=== PATIENT | male | born 1975 | race Caucasian/White ===

== ENCOUNTER 2018-09-30 13:15 | Emergency (ER) | payer SELFPAY ==
[~2018-09-30] VITALS: Ht 177.8 cm; Wt 79.4 kg
--- NOTE | 2018-09-30 14:08 | NUR ---
Patient discharged to home in stable conditon. Written and verbal after care instructions given. Patient verbalizes understanding of instructions.
[2018-09-30 14:09] VITALS: BP 126/88
== END 2018-09-30 14:10 | disposition home or self-care (01) ==
LOC: ER 13:15
DX: R05 Cough (principal); F17.210 Nicotine dependence, cigarettes, uncomplicated
CPT/HCPCS: 71045; A4663

== ENCOUNTER 2019-01-23 15:42 | Emergency (ER) | payer SELFPAY ==
--- NOTE | 2019-01-23 16:15 | NUR ---
PT LEFT W/O BEING TRIAGED.
== END 2019-01-23 16:16 | disposition left against medical advice (07) ==
LOC: ER 15:44
DX: Z53.21 Procedure and treatment not carried out due to patient leaving prior to being seen by health care provider (principal)

== ENCOUNTER 2021-05-27 00:57 | Inpatient (IN) | payer OTHER ==
[~2021-05-27] VITALS: Ht 177.8 cm; Wt 77.1 kg
--- NOTE | 2021-05-27 01:25 | NUR ---
Pt arrived at ER c/o abdominal pain and diarrhea X 4 days after eating [employer]. Afebrile. Denies SOB or chest pain. Dr. Khan at bedside MSE in progress.
[2021-05-27] MEDS ORDERED: IV NORMAL SALINE 1000 ML BAG IV ONE (01:30)
[2021-05-27] MEDS ORDERED: MORPHINE SULFATE 4 MG/1 ML DISP.SYRIN IV ONE (01:45)
[2021-05-27] MEDS ORDERED: ONDANSETRON 4 MG/2 ML VIAL IV ONE (01:45)
[2021-05-27 01:56] LABS: HEMATOCRIT 49.6 % (36.7-47.1); MEAN CORPUSCULAR HEMOGLOBIN 26.7 uug (23.8-33.4); MEAN CORPUSCULAR VOLUME 78.8 fL (73.0-96.2); PLATELET COUNT (AUTO) 427 K/uL (152-348)
[2021-05-27] MEDS ORDERED: IV NS 1000 ML 1,000 ML IV ONE (02:00)
[2021-05-27 02:01] LABS: BILIRUBIN,DIRECT 0.1 mg/dL (0.0-0.2); BILIRUBIN,TOTAL 0.5 mg/dL (0.2-1.0); CREATININE 1.4 mg/dL (0.6-1.3); POTASSIUM 3.2 mmol/L (3.5-5.1); TOTAL PROTEIN, SERUM 8.7 g/dL (6.4-8.2)
[2021-05-27] MEDS ORDERED: ONDANSETRON 4 MG/2 ML VIAL ONE (02:22)
[2021-05-27] MEDS ORDERED: MORPHINE SULFATE 4 MG/1 ML DISP.SYRIN ONE (02:22)
[2021-05-27] MEDS ORDERED: SWABABLE VALVE TRANSFER SET EA MC ONE (02:44)
[2021-05-27] MEDS ORDERED: IV NORMAL SALINE 250 ML IV ONE (02:44)
[2021-05-27] MEDS ORDERED: IOHEXOL 300MG/ML 100 ML INFUS..BTL ONE (02:44)
--- NOTE | 2021-05-27 03:00 | NUR ---
PT RESTING IN BED EYES CLOSED. BREATHING EVEN AND UNLABORED.
[2021-05-27] MEDS: MAGNESIUM SULFATE/D5W 100 ML IV SCH (03:12)
[2021-05-27] MEDS ORDERED: POTASSIUM CHLORIDE 20 MEQ TAB.PRT.SR ONE (03:14)
[2021-05-27] MEDS ORDERED: MAGNESIUM SULFATE/D5W 200 ML ONE (03:14)
[2021-05-27] MEDS ORDERED: POTASSIUM CHLORIDE 20 MEQ TAB.PRT.SR PO ONE (03:15)
--- NOTE | 2021-05-27 03:36 | NUR ---
CALLED [facility] FOR PANEL CALL, COLLEEN SEVILLA PAGED.
--- NOTE | 2021-05-27 04:00 | NUR ---
PT AMBULATED TO RESTROOM, STEADY GAIT. ABLE TO PROVIDE US WITH URINE SAMPLE.
[2021-05-27 04:22] LABS: *BILIRUBIN,URIN NEGATIVE (NEGATIVE); *CLARITY,URINE CLEAR (CLEAR); *COLOR,URINE YELLOW (YELLOW); *KETONES,URINE 1+ (NEGATIVE); *UROBILINOGEN,URINE 0.2 E.U./dl (NORMAL); LEUKOCYTE ESTERASE ,URINE NEGATIVE (NEGATIVE); NITRITE, URINE NEGATIVE (NEGATIVE); UGLUCOSE NEGATIVE (NEGATIVE)
[2021-05-27 04:33] LABS: *BLOOD, URINE TRACE (NEGATIVE)
[2021-05-27 04:42] LABS: BACTERIA,URINE NONE SEEN /HPF (NONE SEEN); RBC,URINE 0-3 /HPF (0-3); SQUAMOUS EPITHELIAL CELL,UR FEW /HPF (NONE SEEN); WBC,URINE 0-3 /HPF (0-3)
[2021-05-27] MEDS ORDERED: FENTANYL CITRATE 100 MCG/2 ML AMPUL IV ONE (05:15)
[2021-05-27] MEDS ORDERED: FENTANYL CITRATE 100 MCG/2 ML AMPUL ONE (05:16)
--- NOTE | 2021-05-27 06:46 | NUR ---
PT ASLEEP, RESTING COMFORTABLY, VITALS STABLE.
--- NOTE | 2021-05-27 07:51 | NUR ---
Report given to Lauryn, CLERICAL COORDINATOR. Pt going to Rm 321. Pt stable, VSS, ready for transport.
--- NOTE | 2021-05-27 08:00 | NUR ---
Pt self ambulated from wheelchair to bed. Hand-off given, pt continues to be in stable condition and in NAD at this time.
--- NOTE | 2021-05-27 08:00 | NUR ---
Gps/Design Inserter- Received report from Rolan Batista. Admitted from ER via [facility]ney. Alert, oriented x 4, Complaining of being bloated, abdominal discomfort. Feeling comfortable when he is lying flat in bed. Saline lock to left arm intact, patent. Adam MARIE in too see patient. Patient denies any nausea, no vomiting noted, kept NPO for now as ordered from Adam MARIE, can swab mouth. Safety reviewed, routine admission done.
[2021-05-27 08:15] VITALS: BP 138/81
[2021-05-27] MEDS ORDERED: ONDANSETRON 4 MG/2 ML VIAL IV PRN (10:00)
[2021-05-27] MEDS ORDERED: IV NORMAL SALINE 500 ML IV ONE (10:00)
[2021-05-27] MEDS ORDERED: MORPHINE SULFATE 2 MG/1 ML DISP.SYRIN IV PRN (10:00)
[2021-05-27] MEDS ORDERED: ACETAMINOPHEN 650 MG SUPP.RECT RC PRN (10:00)
[2021-05-27] MEDS ORDERED: ALBUTEROL SULFATE 2.5 MG/3 ML NEBU NEB PRN (11:30)
[2021-05-27] MEDS ORDERED: MORPHINE SULFATE 4 MG/1 ML DISP.SYRIN IV PRN (13:00)
[2021-05-27] MEDS: CEFTRIAXONE 1 G in IV DEXTROSE 5% 50 ML IV SCH (13:12)
[2021-05-27] MEDS: METRONIDAZOLE 500 MG/NS 100ML 500 MG in PREMIXED 1 EACH IV SCH ×2 (15:04→22:35)
--- NOTE | 2021-05-27 15:47 | NUR ---
Complained of dryness in his oral mucousa, , ok. for oral swabs dips in ice chips for comfort, per Adam Oliva PRODUCT PLANNER. Kept NPO , oral care encouraged.
[2021-05-27 15:59] VITALS: BP 118/70
--- NOTE | 2021-05-27 20:00 | NUR ---
RECEIVED PATIENT AWAKE IN BED. A/O X4. VS WNL. DENIES ANY PAIN OR DISCOMFORT AT THIS TIME. NO RESP. DISTRESS NOTED. ON RA. HEPLOCK INTACT NAD PATENT, NOTED TO LEFT FA #[address] MANN AND DORA KAUFMAN, SAW PATIENT AT BEDSIDE TO DISCUSS CARE. DORA KAUFMAN NP ORDERED NGT TO BE INSERTED, BUT PATIENT REFUSED FOR INSERTION. CALLED OUT TO DR. MANN AND DORA KAUFMAN INSPECTOR AIR CARRIER TO INFORM OF PATIENTS REFUSAL. NO NEW ORDERS AT THIS TIME. CALL LIGHT IN REACH. ALL NEEDS ATTENDED. WILL CONTINUE TO MONITOR AND ASSESS.
[2021-05-27 20:43] VITALS: BP 132/76
[2021-05-27] MEDS: IV D5/ 0.9% NACL 1,000 ML IV PRN (21:00)
[2021-05-28] MEDS: IV D5/ 0.9% NACL 1,000 ML IV PRN ×2 (05:27→17:29)
[2021-05-28] MEDS: METRONIDAZOLE 500 MG/NS 100ML 500 MG in PREMIXED 1 EACH IV SCH ×3 (05:42→21:10)
[2021-05-28 07:09] LABS: CREATININE 0.9 mg/dL (0.6-1.3); MAGNESIUM 2.5 mg/dL (1.8-2.4)
[2021-05-28 07:11] LABS: HEMATOCRIT 39.6 % (36.7-47.1); MEAN CORPUSCULAR VOLUME 78.9 fL (73.0-96.2); PLATELET COUNT (AUTO) 327 K/uL (152-348)
--- NOTE | 2021-05-28 08:00 | NUR ---
asleep on rounds but arousable, denies of abdominal pain, no nausea and vomiting,states had BM this morning, kept npo, states he's hungry, instructed on plan of care- verbalized understanding, safety measures maintained
[2021-05-28 08:11] LABS: POTASSIUM 2.7 mmol/L (3.5-5.1)
--- NOTE | 2021-05-28 08:20 | NUR ---
K+-2.7- D Pj MYRICK informed with orders
[2021-05-28] MEDS: PANTOPRAZOLE SODIUM 40 MG VIAL IV SCH (08:24)
[2021-05-28] MEDS: POTASSIUM CHLORIDE 50 ML IV SCH ×8 (09:12→17:28)
[2021-05-28] MEDS ORDERED: DIATR MEGLU/DIATRIZOATE SODIUM 30 ML BOTTLE PO ONE (10:03)
--- NOTE | 2021-05-28 10:30 | NUR ---
SB follow thru done, still npo, states is passing gas
[2021-05-28] MEDS: CEFTRIAXONE 1 G in IV DEXTROSE 5% 50 ML IV SCH (11:50)
[2021-05-28 11:53] VITALS: BP 129/70
[2021-05-28 15:14] VITALS: BP 122/70
--- NOTE | 2021-05-28 18:12 | NUR ---
xray here -taking last picture for s SB follow thru, pt kept NPO, no distress noted, call light within reach, all needs attended and met
--- NOTE | 2021-05-28 20:00 | NUR ---
PATIENT AWAKE IN BED. A/O X4. DENIES ANY PAIN OR DISCOMFORT. NO RESP. DISTRESS NOTED. VS WNL. IVF INFUSING WELL TO LEFT FA #20 GAUGE. CONTINUED NPO ORDERED. ALL NEEDS ATTENDED. WILL CONTINUE TO MONITOR AND ASSESS.
[2021-05-28 20:06] VITALS: BP 119/65
--- NOTE | 2021-05-28 21:45 | NUR ---
NOTIFIED DR. MANN OF SMALL BOWEL SERIES RESULTS. NO NEW ORDERS GIVEN AT THIS TIME. ALL NEEDS ATTENDED.
[2021-05-29 04:06] VITALS: BP 122/80
[2021-05-29] MEDS: IV D5/ 0.9% NACL 1,000 ML IV PRN ×2 (04:55→18:10)
[2021-05-29] MEDS: METRONIDAZOLE 500 MG/NS 100ML 500 MG in PREMIXED 1 EACH IV SCH ×3 (05:03→22:14)
[2021-05-29] MEDS: PANTOPRAZOLE SODIUM 40 MG VIAL IV SCH (09:00)
--- NOTE | 2021-05-29 09:21 | NUR ---
received this morning resting easily arousable. oriented x4. iv hydration ongoing. asked if he can eat this morning informed of md order to be npo for now and kub to be done this morning. he verbalized understanding. abdomen still distended. denies nausea or vomiting. no bm. safety measures in place. kept comfortable. call light in reach.
--- NOTE | 2021-05-29 10:16 | NUR ---
contacted kayla white np about pt c/o he's hungry and wants something to eat. pt verbalized he's angry bec he's hungry. kub was done this morning not resulted yet. stated he made a bowel movement this morning clear and watery. denies nausea or vomiting. abdomen noted still distended. waiting for call back. charge nurse aware.
--- NOTE | 2021-05-29 11:39 | NUR ---
dr. le here and saw the patient regarding surgery. however patient admitted he drank some water. reminded him he's supposed to be npo pt didn't say anything. per dr le pt has to be strict npo and pt verbalized understanding and verified consent for surgery possibly tomorrow morning. cont to monitor.
[2021-05-29] MEDS: CEFTRIAXONE 1 G in IV DEXTROSE 5% 50 ML IV SCH (12:01)
[2021-05-29 15:30] VITALS: BP 111/58
--- NOTE | 2021-05-29 18:41 | NUR ---
in bed resting easily arousable. no acute distress. denies nausea/vomiting. stated he made a bm non-bloody, clear and watery. iv hydration ongoing. emphasized md order to be strict npo for surgery tomorrow he stated understanding and said he won't drink anymore. will cont to monitor and endorsed.
--- NOTE | 2021-05-29 18:45 | NUR ---
refused blood draws today. phleb made several attempts but pt kept postponing it. fay white made aware.
--- NOTE | 2021-05-29 19:30 | NUR ---
Received patient lying in bed. AAOX4. Patient denies SOB, chest pain or dizziness at this time. IVF via L UA,infusing well. Kept patient on NPO status. Reminded patient regarding possible surgery tomorrow once serum potassium is within normal limits. Safety precautions and comfort measures initiated. Call light button and frequently used items within patient's reach. Will continue to monitor.
[2021-05-29 20:03] VITALS: BP 109/62
--- NOTE | 2021-05-29 21:00 | NUR ---
Blood drawn by lab, results came back showing potassium of 3.0. Notified CLAMSHELL OPERATOR ham boner, Adam Oliva. CLAMSHELL OPERATOR ordered KCL 10meq/50ml.
[2021-05-29 21:08] LABS: HEMATOCRIT 36.1 % (36.7-47.1); MEAN CORPUSCULAR HEMOGLOBIN 26.1 uug (23.8-33.4); MEAN CORPUSCULAR VOLUME 79.1 fL (73.0-96.2); PLATELET COUNT (AUTO) 274 K/uL (152-348)
[2021-05-29 21:13] LABS: CREATININE 0.8 mg/dL (0.6-1.3)
[2021-05-29] MEDS: POTASSIUM CHLORIDE 50 ML IV SCH (23:53)
[2021-05-30] MEDS: POTASSIUM CHLORIDE 50 ML IV SCH ×8 (01:14→15:01)
[2021-05-30 04:06] VITALS: BP 107/62
[2021-05-30] MEDS: IV D5/ 0.9% NACL 1,000 ML IV PRN ×2 (04:15→17:20)
[2021-05-30] MEDS: METRONIDAZOLE 500 MG/NS 100ML 500 MG in PREMIXED 1 EACH IV SCH ×3 (06:34→23:17)
--- NOTE | 2021-05-30 06:35 | NUR ---
Patient slept intermittently through the night. IV on L FA, was dislodged and infiltration was noted. Elevated affected arm, and applied warm towel to reduce swelling. Reinserted and document new IV access of the R hand, 20 gauge, running D5 0.9% NaCl at 100ml/hr. Potassium was replaced. Patient kept on strict NPO in preparation for surgery. All due medications were given and tolerated well. All needs attended to and met. Patient denies nausea and vomiting. Safety and comfort measures maintained. Will endorse to day shift nurse.
[2021-05-30 06:49] LABS: HEMATOCRIT 34.8 % (36.7-47.1); MEAN CORPUSCULAR HEMOGLOBIN 26.2 uug (23.8-33.4); MEAN CORPUSCULAR VOLUME 79.6 fL (73.0-96.2); PLATELET COUNT (AUTO) 261 K/uL (152-348)
[2021-05-30 07:25] LABS: CREATININE 0.8 mg/dL (0.6-1.3); MAGNESIUM 1.8 mg/dL (1.8-2.4); POTASSIUM 3.3 mmol/L (3.5-5.1)
[2021-05-30 07:30] VITALS: BP 116/72
--- NOTE | 2021-05-30 07:37 | NUR ---
Received pt in bed awake and oriented x4. Denies pain or sob. No acute distress noted. Iv hydration ongoing tolerated. Received call from Breann at surgery that they'll wait for potassium result this morning before they take him downstairs for surgery d/t pt had low potassium and was replaced last night. patient made aware and agreed. cont to monitor.
[2021-05-30] MEDS ORDERED: MIDAZOLAM HCL 2 MG/2 ML VIAL ONE (08:00)
[2021-05-30] MEDS ORDERED: FENTANYL CITRATE 250 MCG/5 ML AMPUL ONE (08:01)
[2021-05-30] MEDS ORDERED: FENTANYL CITRATE 100 MCG/2 ML AMPUL ONE ×2 (08:01→12:02)
[2021-05-30] MEDS ORDERED: HYDROMORPHONE 2 MG/1 ML DISP.SYRIN ONE (08:02)
[2021-05-30] MEDS ORDERED: ROCURONIUM BROMIDE 50 MG/5 ML VIAL ONE (08:02)
[2021-05-30] MEDS ORDERED: BUPIVACAINE/EPI PF 0.25% 30 ML VIAL ONE (08:12)
[2021-05-30] MEDS ORDERED: LIDOCAINE HCL 2% 20 ML VIAL ONE (08:12)
[2021-05-30] MEDS ORDERED: BACITRACIN ZINC OINT 15 GM TUBE ONE (08:12)
[2021-05-30] MEDS ORDERED: MAGNESIUM SULFATE 1 GM in IV DEXTROSE 5% 100 ML IV ONE (08:45)
--- NOTE | 2021-05-30 08:50 | NUR ---
picked up by OR nurses for procedure. no acute distress noted.
[2021-05-30] MEDS: PANTOPRAZOLE SODIUM 40 MG VIAL IV SCH (09:00)
[2021-05-30] MEDS ORDERED: MAGNESIUM SULFATE/D5W 100 ML IV SCH (09:15)
[2021-05-30] MEDS ORDERED: LIDOCAINE-MPF 2% 5 ML VIAL IJ ONE (11:33)
[2021-05-30] MEDS ORDERED: SEVOFLURANE 250 ML BOTTLE IH ONE (11:33)
[2021-05-30] MEDS ORDERED: CEFAZOLIN 1 G VIAL IM ONE (11:33)
[2021-05-30] MEDS ORDERED: GLYCOPYRROLATE 0.2 MG/ML VIAL IJ ONE (11:33)
[2021-05-30] MEDS ORDERED: ONDANSETRON 4 MG/2 ML VIAL IV ONE (11:33)
[2021-05-30] MEDS ORDERED: PROPOFOL 200 MG/20 ML BOTTLE IV ONE (11:33)
[2021-05-30] MEDS ORDERED: METOCLOPRAMIDE HCL 10 MG TABLET PO ONE (11:33)
[2021-05-30] MEDS ORDERED: NEOSTIGMINE METHYLSULFATE 10 MG/10 ML VIAL IM ONE (11:33)
[2021-05-30 12:45] VITALS: BP 108/65
--- NOTE | 2021-05-30 12:45 | NUR ---
Came back from surgery via [place]. A little groggy but arousable able to make needs known. On 2lpm nc o2 sat 97% no sob noted. vs taken and noted. Dressing noted on abdomen intact and dry no bleeding noted. Orders are noted and carried. Will cont to monitor. Addendum: 05/30/21 at 1332 by JAME FORRESTER RN also noted with portillo catheter intact and patent draining yellow urine no hematuria noted.
[2021-05-30 13:34] VITALS: BP 103/62
[2021-05-30 15:05] VITALS: BP 102/60
--- NOTE | 2021-05-30 15:21 | NUR ---
Patient is asking for ice chips. Contacted MEDICAL RECORDS SPECIALIST Pj and he said ok to give a small cup and that's it for today. Patient noted with routine pain meds and asked if ok to give them. Per MEDICAL RECORDS SPECIALIST Pj if it's ok with Dr. Rene. Called and spoke with Dr. Rene and he said ok to change diet to npo except meds noted and carried. MEDICAL RECORDS SPECIALIST Oliva aware. Patient made aware of orders and agreed.
[2021-05-30] MEDS: ACETAMINOPHEN 325 MG TABLET PO SCH ×2 (15:28→21:48)
[2021-05-30] MEDS: GABAPENTIN 300 MG CAPSULE PO SCH ×2 (15:29→21:48)
[2021-05-30] MEDS: IBUPROFEN 800 MG TABLET PO SCH ×2 (15:29→21:48)
[2021-05-30] MEDS: CEFTRIAXONE 1 G in IV DEXTROSE 5% 50 ML IV SCH (15:33)
--- NOTE | 2021-05-30 18:44 | NUR ---
resting easily arousable. denies sob. iv intact and patent. hasn't passed gas. portillo catheter intact noted with yellow urine. no hematuria. kept comfortable. needs attended.
--- NOTE | 2021-05-30 19:30 | NUR ---
Received pt awake, alert and orientedx4. Pt in no acute distress. Iv intact. Safety and comfort provided. Will continue to monitor.
[2021-05-30 20:06] VITALS: BP 100/61
[2021-05-30] MEDS ORDERED: METRONIDAZOLE 500 MG/NS 100ML 100 ML IV ONE (23:00)
[2021-05-31] MEDS ORDERED: METRONIDAZOLE 500 MG/NS 100ML 100 ML IV ONE (02:43)
[2021-05-31 04:09] VITALS: BP 126/81
[2021-05-31] MEDS: METRONIDAZOLE 500 MG/NS 100ML 500 MG in PREMIXED 1 EACH IV SCH (06:04)
[2021-05-31] MEDS: IBUPROFEN 800 MG TABLET PO SCH ×3 (06:04→21:52)
[2021-05-31] MEDS: GABAPENTIN 300 MG CAPSULE PO SCH ×3 (06:05→21:52)
[2021-05-31] MEDS: ACETAMINOPHEN 325 MG TABLET PO SCH ×3 (06:05→21:52)
--- NOTE | 2021-05-31 06:35 | NUR ---
Pt in no acute distress. Iv intact. Prescribed medication given and pt tolerated it well. Safety and comfort provided. Vital signs within normal limit . Pt stable. Pt was given incentive spirometer for exercise. Pt tolerating medication.Pt tolerating clear liquid. Wallace cath still intact and draining well. Will endorse to incoming nurse for continuity of care.
[2021-05-31 06:38] LABS: HEMATOCRIT 32.9 % (36.7-47.1); MEAN CORPUSCULAR HEMOGLOBIN 26.6 uug (23.8-33.4); MEAN CORPUSCULAR VOLUME 79.8 fL (73.0-96.2); PLATELET COUNT (AUTO) 241 K/uL (152-348)
[2021-05-31 06:53] LABS: CREATININE 0.7 mg/dL (0.6-1.3); MAGNESIUM 1.9 mg/dL (1.8-2.4); POTASSIUM 3.6 mmol/L (3.5-5.1)
--- NOTE | 2021-05-31 07:48 | NUR ---
received awake in bed. no pain or sob. dressing on abdomen intact no bleeding noted. encouraged out of bed/ambulation today pt stated he will. iv on right hand with hydration ongoing. portillo catheter intact draining yellow urine. no hematuria noted. kept comfortable. safety measures in place. call light in reach.
[2021-05-31] MEDS: PANTOPRAZOLE SODIUM 40 MG VIAL IV SCH (08:33)
[2021-05-31 11:23] VITALS: BP 99/54
[2021-05-31] MEDS: CEFTRIAXONE 1 G in IV DEXTROSE 5% 50 ML IV SCH (12:05)
[2021-05-31] MEDS: CLINDAMYCIN PHOSPHATE IV 600 MG in IV DEXTROSE 5% 100 ML IV SCH ×2 (13:25→21:52)
[2021-05-31 15:56] VITALS: BP 106/65
[2021-05-31] MEDS: IV D5/ 0.9% NACL 1,000 ML IV PRN (17:15)
--- NOTE | 2021-05-31 18:39 | NUR ---
Ate fairly well and tolerated diet. Denies nausea or vomiting. Still no bm but passing gas. Kept postponing ambulation/getting out of bed. He said he will try again tomorrow. Wallace catheter intact draining yellow urine no hematuria noted. Kept comfortable. Needs attended. Cont to monitor.
--- NOTE | 2021-05-31 19:30 | NUR ---
Received pt awake, alert and orientedx4. Pt in no acute distress. Iv intact. Pt dressing on abdomen intact. Safety and comfort provided. Will continue to monitor.
[2021-06-01 04:00] VITALS: BP 111/70
[2021-06-01] MEDS: IV D5/ 0.9% NACL 1,000 ML IV PRN (04:52)
[2021-06-01] MEDS: IBUPROFEN 800 MG TABLET PO SCH ×3 (06:20→21:11)
[2021-06-01] MEDS: GABAPENTIN 300 MG CAPSULE PO SCH ×3 (06:20→21:11)
[2021-06-01] MEDS: CLINDAMYCIN PHOSPHATE IV 600 MG in IV DEXTROSE 5% 100 ML IV SCH ×3 (06:20→21:10)
[2021-06-01] MEDS: ACETAMINOPHEN 325 MG TABLET PO SCH ×3 (06:20→21:11)
[2021-06-01] MEDS: PANTOPRAZOLE SODIUM 40 MG TABLET.DR PO SCH (06:23)
--- NOTE | 2021-06-01 06:26 | NUR ---
Pt refused for his blood drawn by insurance follow up representative.
[2021-06-01 10:24] LABS: HEMATOCRIT 35.7 % (36.7-47.1); MEAN CORPUSCULAR HEMOGLOBIN 25.9 uug (23.8-33.4); MEAN CORPUSCULAR VOLUME 79.4 fL (73.0-96.2); PLATELET COUNT (AUTO) 248 K/uL (152-348)
[2021-06-01 10:34] LABS: CREATININE 0.8 mg/dL (0.6-1.3); MAGNESIUM 1.8 mg/dL (1.8-2.4); PHOSPHOROUS 3.5 mg/dL (2.5-4.9); POTASSIUM 3.4 mmol/L (3.5-5.1)
[2021-06-01 11:29] VITALS: BP 117/62
[2021-06-01 12:40] LABS: THYROID STIMULATING HORMONE 2.112 mIU/mL (0.358-3.740)
[2021-06-01] MEDS: CEFTRIAXONE 1 G in IV DEXTROSE 5% 50 ML IV SCH (13:40)
--- NOTE | 2021-06-01 19:30 | NUR ---
Received pt awake, alert and orientedx4. Pt in no acute distress. Iv intact.Dressing intact. Safety and comfort provided. Will continue to monitor.
[2021-06-01 20:00] VITALS: BP 105/61
[2021-06-02 04:00] VITALS: BP 107/63
[2021-06-02 04:30] VITALS: BP 105/63
--- NOTE | 2021-06-02 06:00 | NUR ---
Pt slept comfortably. Pt in no acute distress. Pt vital signs within normal limit.Pt dressing intact.Safety and comfort provided. All needs are met. Will endorse to incoming nurse for continuity of care.
[2021-06-02] MEDS: CLINDAMYCIN PHOSPHATE IV 600 MG in IV DEXTROSE 5% 100 ML IV SCH ×3 (06:11→21:21)
[2021-06-02] MEDS: IBUPROFEN 800 MG TABLET PO SCH ×3 (06:11→21:19)
[2021-06-02] MEDS: PANTOPRAZOLE SODIUM 40 MG TABLET.DR PO SCH (06:11)
[2021-06-02] MEDS: ACETAMINOPHEN 325 MG TABLET PO SCH ×3 (06:11→21:19)
[2021-06-02] MEDS: GABAPENTIN 300 MG CAPSULE PO SCH ×3 (06:11→21:19)
--- NOTE | 2021-06-02 07:50 | NUR ---
RECEIVED PATIENT AWAKE IN BED. A/O X4. VS WNL. DENIES ANY PAIN OR DISCOMFORT AT THIS TIME. NO RESP. DISTRESS NOTED. ON RA. CALL LIGHT IN REACH. ALL NEEDS ATTENDED. WILL CONTINUE TO MONITOR
[2021-06-02 09:02] LABS: HEMATOCRIT 34.9 % (36.7-47.1); MEAN CORPUSCULAR HEMOGLOBIN 26.6 uug (23.8-33.4); MEAN CORPUSCULAR VOLUME 79.8 fL (73.0-96.2); PLATELET COUNT (AUTO) 263 K/uL (152-348)
[2021-06-02 09:18] LABS: CREATININE 0.8 mg/dL (0.6-1.3); MAGNESIUM 1.8 mg/dL (1.8-2.4); PHOSPHOROUS 3.2 mg/dL (2.5-4.9); POTASSIUM 3.4 mmol/L (3.5-5.1)
[2021-06-02] MEDS ORDERED: POTASSIUM CHLORIDE 20 MEQ TAB.PRT.SR PO ONE (11:45)
[2021-06-02] MEDS: CEFTRIAXONE 1 G in IV DEXTROSE 5% 50 ML IV SCH (11:47)
[2021-06-02 11:53] VITALS: BP 121/79
[2021-06-02 15:24] VITALS: BP 121/79
[2021-06-02] MEDS: IV D5/ 0.9% NACL 1,000 ML IV PRN (16:14)
[2021-06-02 20:10] VITALS: BP 109/70
[2021-06-03] MEDS: IV D5/ 0.9% NACL 1,000 ML IV PRN (02:38)
[2021-06-03 05:14] VITALS: BP 107/72
[2021-06-03] MEDS: CLINDAMYCIN PHOSPHATE IV 600 MG in IV DEXTROSE 5% 100 ML IV SCH ×3 (05:26→21:36)
[2021-06-03] MEDS: ACETAMINOPHEN 325 MG TABLET PO SCH ×3 (05:27→21:18)
[2021-06-03] MEDS: GABAPENTIN 300 MG CAPSULE PO SCH ×3 (05:27→21:18)
[2021-06-03] MEDS: IBUPROFEN 800 MG TABLET PO SCH ×3 (05:27→21:18)
[2021-06-03] MEDS: PANTOPRAZOLE SODIUM 40 MG TABLET.DR PO SCH (06:05)
[2021-06-03 09:47] LABS: HEMATOCRIT 33.3 % (36.7-47.1); MEAN CORPUSCULAR HEMOGLOBIN 26.8 uug (23.8-33.4); MEAN CORPUSCULAR VOLUME 79.7 fL (73.0-96.2); PLATELET COUNT (AUTO) 256 K/uL (152-348)
[2021-06-03 09:52] LABS: CREATININE 0.7 mg/dL (0.6-1.3); MAGNESIUM 1.8 mg/dL (1.8-2.4); PHOSPHOROUS 3.1 mg/dL (2.5-4.9); POTASSIUM 3.5 mmol/L (3.5-5.1)
[2021-06-03 11:02] VITALS: BP 120/71
[2021-06-03] MEDS: CEFTRIAXONE 1 G in IV DEXTROSE 5% 50 ML IV SCH (11:17)
--- NOTE | 2021-06-03 14:02 | NUR ---
dc folly catheter per md orders
[2021-06-03 15:32] VITALS: BP 122/79
--- NOTE | 2021-06-03 19:50 | NUR ---
Received patient lying in bed. AAOX4. Patient denies pain or nausea and vomiting at this time. On room air. IV access on R hand patent and intact. Abdominal dressing was accidentally removed, fetlon are still intact. Cleansed area with NS and covered with gauze and abdominal dressing. Safety precautions and comfort measures initiated. Call light button and frequently used items within reach. Will continue to monitor.
[2021-06-03 20:49] VITALS: BP 125/71
[2021-06-04 05:39] VITALS: BP 125/66
[2021-06-04] MEDS: GABAPENTIN 300 MG CAPSULE PO SCH (06:40)
[2021-06-04] MEDS: ACETAMINOPHEN 325 MG TABLET PO SCH (06:40)
[2021-06-04] MEDS: CLINDAMYCIN PHOSPHATE IV 600 MG in IV DEXTROSE 5% 100 ML IV SCH (06:40)
[2021-06-04] MEDS: PANTOPRAZOLE SODIUM 40 MG TABLET.DR PO SCH (06:40)
[2021-06-04] MEDS: IBUPROFEN 800 MG TABLET PO SCH (06:40)
--- NOTE | 2021-06-04 07:30 | NUR ---
Patient slept through the night with no complaints. IV access still intact. All due medications were giv en as ordered. All needs were attended to and met. Safety precautions and comfort measures maintained. Will endorse to day shift.
--- NOTE | 2021-06-04 10:44 | NUR ---
dc orders received noted and carried out.dc instruction and education given to the pt pt said he will follow up with the dr alfredo norton per md orders,pt left the facility via private car in stable condition
== END 2021-06-04 10:45 | disposition home or self-care (01) | DRG 230 ==
LOC: ER 01:05 → MEDSURG3 07:54
PROVIDERS: ADMIT Nurse Practitioner Family; ATTEND Hospitalist
PROC: 0DBU0ZX Excision of Omentum, Open Approach, Diagnostic (ICD-10-PCS; principal; 2021-05-27)
PROC: 0DBV0ZX Excision of Mesentery, Open Approach, Diagnostic (ICD-10-PCS; 2021-05-30)
PROC: 0DB80ZZ Excision of Small Intestine, Open Approach (ICD-10-PCS; 2021-05-30)
DX: K56.690 Other partial intestinal obstruction (principal); N17.0 Acute kidney failure with tubular necrosis; E86.0 Dehydration; E87.6 Hypokalemia; E87.1 Hypo-osmolality and hyponatremia; F17.210 Nicotine dependence, cigarettes, uncomplicated; F41.9 Anxiety disorder, unspecified; D72.829 Elevated white blood cell count, unspecified; J45.909 Unspecified asthma, uncomplicated; Z71.6 Tobacco abuse counseling; D64.9 Anemia, unspecified; K66.8 Other specified disorders of peritoneum
CPT/HCPCS: 36415; 71250; 74018; 74250; 82378; 82747; 83550; 83605; 83690; 83735; 84100; 84443; 85014; 85025; 87040; 93005; A4217; A4663; C9113; G0378; J0690; J0696; J1170; J2250; J2270; J2405; J3010; J3475; J3480; J3490; J7030; J7042; J7050; J7060; J8597; Q9963; Q9967

== ENCOUNTER 2025-04-25 16:28 | Emergency (ER) | payer OTHER ==
[~2025-04-25] VITALS: Ht 177.8 cm; Wt 83.9 kg
[2025-04-25 16:34] VITALS: BP 133/78
[2025-04-25] MEDS ORDERED: ALBU6.7H9 INH (16:57)
[2025-04-25 17:06] VITALS: BP 129/81; O2SAT 99
== END 2025-04-25 17:01 | disposition home or self-care (01) ==
LOC: ER 16:37
DX: J45.909 Unspecified asthma, uncomplicated (principal); Z76.0 Encounter for issue of repeat prescription; Z87.891 Personal history of nicotine dependence
CPT/HCPCS: A4606; A4663